=== PATIENT | female | born 1965 | race Caucasian/White ===

== ENCOUNTER → 2017-11-21 | Outpatient (CLI) | payer OTHER ==
[~2017-11-21] VITALS: Ht 170.2 cm; Wt 63.0 kg
[~2017-11-21] MED LIST: ACIDOPHILUS1 EAC4 PO; ASCORBIC ACID500 M3 PO; BIOTIN5 MG PO; CELEXA20 MG PO; CINNAMON500 MG PO; FLAX OIL1000 MG PO; MAGNESIUM CITR100 MG PO; VITAMIN A10000 UNIT PO; VITAMIN B-121000 MC3 PO; VITAMIN D31000 UNI2 PO; VITAMIN E200 UNI2 PO
== END | disposition home or self-care (01) ==
LOC: AMB 11-07 11:30
PROC: 0DJD8ZZ Inspection of Lower Intestinal Tract, Via Natural or Artificial Opening Endoscopic (ICD-10-PCS; principal; 2017-11-21)
DX: Z12.11 Encounter for screening for malignant neoplasm of colon (principal); K59.09 Other constipation; F41.1 Generalized anxiety disorder
CPT/HCPCS: J2250